=== PATIENT | female | born 1995 | race American Indian/Alaskan Native ===

== ENCOUNTER 2018-06-03 12:12 | Emergency (ER) | payer OTHER ==
[2018-06-03 12:35] VITALS: RESP 18
--- NOTE | 2018-06-03 13:01 | C.PDOC ---
History Of Present Illness 22 yo female w/o PMHX, LNMP 04/26/18, (+) test at home, , no hx of ectopic /miscarriage/, come in for evaluation of lower abdominal cramping pain developed for past few days. Pt also reports, " some col d sx " associated with dry cough. Otherwise, pt denies fever, chills, drooling, dysphagia, dyspnea, CP, SOB, dyspnea, palpitation, wheezing, N/V/D, UTI sx, denies vaginal bleeding, hematuria, back pain. Ambulatory, not in any apparent distress. Denies care as of today. Time Seen by Provider: 06/03/18 12:45 Chief Complaint (Nursing): Abdominal Pain History Per: Patient Past Medical History Reviewed: Historical Data, Nursing Documentation, Vital Signs Vital Signs: Last Vital Signs Temp 98.2 F 06/03/18 12:30 Pulse 95 H 06/03/18 12:30 Resp 18 06/03/18 12:30 BP 145/78 06/03/18 12:30 Pulse Ox 100 06/03/18 12:30 - Medical History PMH: HTN Family History: States: Unknown Family Hx - Social History Hx Tobacco Use: No Hx Alcohol Use: No Hx Substance Use: No - Immunization History Hx Tetanus Toxoid Vaccination: No Hx Influenza Vaccination: No Hx Pneumococcal Vaccination: No Review Of Systems Except As Marked, All Systems Reviewed And Found Negative. Constitutional: Negative for: Fever, Chills Eyes: Negative for: Vision Change ENT: Positive for: Nose Discharge, Nose Congestion. Negative for: Ear Discharge, Throat Pain Cardiovascular: Negative for: Chest Pain, Palpitations Respiratory: Positive for: Cough. Negative for: Shortness of Breath, Sputum, Wheezing Gastrointestinal: Positive for: Abdominal Pain. Negative for: Nausea, Vomiting, Diarrhea Genitourinary: Negative for: Dysuria, Frequency, Hematuria, Vaginal Discharge, Vaginal Bleeding Musculoskeletal: Negative for: Neck Pain, Back Pain Skin: Negative for: Rash Neurological: Negative for: Altered Mental Status Physical Exam - Physical Exam Appears: Well, Non-toxic, No Acute Distress Skin: Normal Color, Warm, Dry, No Rash Head: Normacephalic Eye(s): bilateral: PERRL Ear(s): Bilateral: Normal Nose: No Flaring, Discharge (B/L nasal congestion) Oral Mucosa: Moist Throat: No Erythema, No Drooling Neck: Trachea Midline, Supple Cardiovascular: Rhythm Regular, No Murmur, No JVD Respiratory: No Decreased Breath Sounds, No Accessory Muscle Use, No Stridor, No Wheezing Gastrointestinal/Abdominal: Soft, Tenderness (mild suprapubic), No Distention, No Guarding, No Rebound Back: No CVA Tenderness Extremity: Normal ROM, No Swelling Neurological/Psych: Oriented x3 ED Course And Treatment - Laboratory Results Result Diagrams: 06/03/18 13:15 06/03/18 13:15 Lab Interpretation: No Acute Changes Urine POC: Positive O2 Sat by Pulse Oximetry: 100 Pulse Ox Interpretation: Normal - CT Scan/US Transvaginal US Other Rad Studies (CT/US): Radiology Report Reviewed CT/US Interpretation: Accession No. : [id number]. Patient Name / ID : STANLEY GUILLEN / [id number]. Exam Date : 06/03/2018 14:03:21 ( Approved ). Study Comment : Sex / Age : F / 22Y. Creator : Theodora Mariscal MD. Dictator : Theodora Mariscal MD. Yard Specialist : Tool Grinder Set Up Operator Gear : Thoedora Mariscal MD. Approver2 : Report Date : 06/03/2018 14:59:46. My Comment : . This report is currently processing and HAS NOT BEEN OFFICIALLY SIGNED BY THE PHYSICIAN - ESTIMATED TIME OF APPROVAL IS 06/03/2018 15:04. Date of service: 06/03/2018. Indication: abd cramping. Comparison: None available. Technique: Real-time transabdominal pelvic ultrasound was performed. In addition a transvaginal pelvic ultrasound was necessary to better depict pelvic anatomy. Findings: The uterus measures approximately 10.1 x 6.0 x 6.7 cm. Anteverted. Cervix length measures approximately 3.0 cm. The gestational sac measures 1.0 cm, out of range for gestational age calculation. 2 mm yolk sac. No evidence of pole at this time. The right ovary measures 3.5 x 2.9 x 2.0 cm and contains evidence of 2.1 cm corpus luteal cyst. The left ovary measures 7.6 x 5.1 x 7.6 cm. Left adnexal complex tubular structure with measurements of approximately 6.9 x 4.6 x 6.9 cm and evidence of debris. Blood flow was demonstrated to both ovaries. Impression: Intrauterine gestational sac, out of range for gestational age calculation. 2 mm yolk sac. No evidence of pole at this time. Recommend clinical correlation including quantitative beta HCG and follow-up as indicated. Left adnexal complex tubular structure with measurements of approximately 6.9 x 4.6 x 6.9 cm and evidence of debris. Appearance concerning for loculated hydrosalpinx containing debris. Alternatives include hemorrhagic cyst or less likely endometrioma. In the proper clinical setting pyosalpinx may be considered. Correlate clinically. Evidence of 2.1 cm right corpus luteal cyst. Recommend attention on short-term follow-up. Advise an anomaly screen at 16-18 weeks gestational age Progress Note: Pt was OBS in for 3 hours and remained stable, asymptomatic now. On re-eval, pt is afberile, hemodynamicaly stable. Non-toxic. PulseOx 98% RA. Tolerate Po well in ED. neck: Supple, (-) JVD, (-) carotid bruits. Lungs: CTA B/L, BS equal B/L. CVS: (+)S1S2, reg, (-) murmur. Abd: benign, (-) guarding, (-) rebound. Back: (-) CVA tenderness. Blood work review, appears normal. US results review and c/w with early . Additional US findings review and discussed with , stable for discahrge now with OB F/U. results review and discussed with pt. return to ED or F/u wih OB in 2 days to repeat beta. F/u with [facility] for further evaland tx. Pt understand and agrees with plan. if any worsening or new changes- return to ED for re-eavl, pt understand and agrees with plan. Disposition Counseled Patient/Family Regarding: Studies Performed, Diagnosis, Need For Followup, Rx Given - Disposition [facility] Disposition: HOME/ ROUTINE Disposition Time: 14:05 Condition: STABLE Additional Instructions: Encourage fluids vitamins daily Take medication as prescribed Return to ED or F/u with [facility] in 2 days to repeat blood work, BETA QUANT Return to Ed at any time if any worsening or new changes Prescriptions: Nitrofurantoin Macrocrystals [Macrobid] 1 cap PO BID #14 cap Instructions: Urinary Tract Infections in Adults, Threatened Miscarriage Forms: [facility] [facility] ([place] Citizen) - Clinical Impression Clinical Impression: UTI (urinary tract infection) during , Threatened
[2018-06-03 13:21] LABS: BASO # 0.1 K/uL (0.0-0.2); BASO % 0.5 % (0.0-2.0); EOS # 0.2 K/uL (0.0-0.7); EOS % 2.2 % (0.0-4.0); HEMOGLOBIN 9.9 g/dL (11.0-16.0); LYMPH # 1.9 K/uL (1.0-4.3); LYMPH % 20.2 % (20.0-40.0); MEAN CORPUSCULAR HEMOGLOBIN 19.6 pg (27.0-31.0); MEAN CORPUSCULAR HGB CONC 30.4 g/dL (33.0-37.0); MEAN PLATELET VOLUME 9.6 fL (7.2-11.7); MONO # 0.8 K/uL (0.0-0.8); MONO % 8.4 % (0.0-10.0); NEUT # 6.6 K/uL (1.8-7.0); NEUT % 68.7 % (50.0-75.0); RBC 5.06 Mil/uL (3.80-5.20); RED CELL DISTRIBUTION WIDTH 17.7 % (11.5-14.5); WHITE BLOOD COUNT 9.6 K/uL (4.8-10.8)
[2018-06-03 13:25] LABS: SQUAMOUS EPITHIAL 7 /hpf (0-5); URINE BACTERIA RARE (<OCC); URINE BILIRUBIN NEGATIVE (NEGATIVE); URINE BLOOD NEGATIVE (NEGATIVE); URINE CLARITY Hazy (Clear); URINE COLOR Yellow (YELLOW); URINE GLUCOSE (UA) NORMAL (Normal); URINE LEUKOCYTE ESTERASE 1+ Leu/uL (Negative); URINE PROTEIN NEGATIVE (NEGATIVE); URINE UROBILINOGEN NORMAL mg/dL (0.2-1.0)
[2018-06-03 13:27] LABS: MEAN CELL VOLUME 64.5 fL (81.0-99.0)
[2018-06-03 13:29] LABS: HCG,QUALITATIVE URINE POSITIVE (NEGATIVE)
[2018-06-03 13:43] LABS: BLOOD UREA NITROGEN 8 mg/dL (7-17); CALCIUM 9.4 mg/dl (8.6-10.4); GFR NON-AFRICAN AMERICAN > 60
--- NOTE | 2018-06-03 15:03 | US ---
Date of service: 06/03/2018 Indication: abd cramping Comparison: None available Technique: Real-time transabdominal pelvic ultrasound was performed. In addition a transvaginal pelvic ultrasound was necessary to better depict pelvic anatomy. Findings: The uterus measures approximately 10.1 x 6.0 x 6.7 cm. Anteverted. Cervix length measures approximately 3.0 cm. The gestational sac measures 1.0 cm, out of range for gestational age calculation. 2 mm yolk sac. No evidence of pole at this time. The right ovary measures 3.5 x 2.9 x 2.0 cm and contains evidence of 2.1 cm corpus luteal cyst. The left ovary measures 7.6 x 5.1 x 7.6 cm. Left adnexal complex tubular structure with measurements of approximately 6.9 x 4.6 x 6.9 cm and evidence of debris. Blood flow was demonstrated to both ovaries. Impression: Intrauterine gestational sac, out of range for gestational age calculation. 2 mm yolk sac. No evidence of pole at this time. Recommend clinical correlation including quantitative beta HCG and follow-up as indicated. Left adnexal complex tubular structure with measurements of approximately 6.9 x 4.6 x 6.9 cm and evidence of debris. Appearance concerning for loculated hydrosalpinx containing debris. Alternatives include hemorrhagic cyst or less likely endometrioma. In the proper clinical setting pyosalpinx may be considered. Correlate clinically. Evidence of 2.1 cm right corpus luteal cyst. Recommend attention on short-term follow-up. Advise an anomaly screen at 16-18 weeks gestational age
[2018-06-03 16:30] VITALS: BP 143/83; PULSE 97; TEMP 98.3
[2018-06-03 18:22] VITALS: O2SAT 100
== END 2018-06-03 15:45 | disposition home or self-care (01) ==
LOC: C.ER 12:12
DX: O20.0 Threatened abortion (principal); O23.40 Unspecified infection of urinary tract in pregnancy, unspecified trimester; Z3A.00 Weeks of gestation of pregnancy not specified; I10 Essential (primary) hypertension